=== PATIENT | female | born 1990 | race African-American/Black ===

== ENCOUNTER → 2018-04-27 15:07 | Emergency (ER) | payer BC ==
[~2018-04-27 15:07] MED LIST: Ketorolac Tromethamine 30 MG/ML VIAL ONE; Promethazine HCl 25 MG/ML VIAL ONE; diphenhydrAMINE 50 MG/ML VIAL ONE
== END | disposition home or self-care (01) ==
LOC: ERS 15:07
DX: R51 Headache (principal); Z87.891 Personal history of nicotine dependence
CPT/HCPCS: 96365; 96366; 96375; J1200; J1885; J2550